=== PATIENT | male | born 1990 | race Caucasian/White ===

== ENCOUNTER 2019-02-07 23:51 | Emergency (ER) | payer MEDICAID, OTHER ==
[~2019-02-07] VITALS: Ht 170.2 cm; Wt 68.1 kg
[2019-02-07 23:55] VITALS: BP 121/82
[2019-02-08] MEDS ORDERED: LIDOCAINE-MPF 1%, 5ML ONE (00:14)
[2019-02-08] MEDS ORDERED: OXYcodone/APAP 5/325MG TABLET ONE (00:21)
[2019-02-08] MEDS ORDERED: IBUPROFEN 600 MG TABLET ONE (00:24)
[2019-02-08] MEDS ORDERED: LIDOCAINE-MPF 1%, 5ML INFIL ONE (00:30)
[2019-02-08] MEDS ORDERED: IBUPROFEN 200 MG TABLET PO ONE (00:30)
[2019-02-08] MEDS ORDERED: OXYcodone/APAP 5/325MG TABLET PO ONE (00:30)
--- NOTE | 2019-02-08 01:11 | NUR ---
PT REPORTS SIGNIFICANT IMPROVEMENT IN PAIN W/ I&D. DC EDUCATION PROVIDED, PT DEMONSTRATES UNDERSTANDING. PT AMBULATED STEADILY TO DC WITH RN
== END 2019-02-08 01:14 | disposition home or self-care (01) ==
LOC: ED 02-08 01:03
DX: L02.511 Cutaneous abscess of right hand (principal)
CPT/HCPCS: 10060; 26010; 99284

== ENCOUNTER 2021-01-11 23:20 | Emergency (ER) | payer MEDICAID ==
[~2021-01-11] VITALS: Ht 170.2 cm; Wt 66.2 kg
[2021-01-12] MEDS ORDERED: L.E.T SOLUTION TP ONE ×2 (00:13→00:30)
[2021-01-12 00:17] VITALS: BP 109/48
[2021-01-12] MEDS ORDERED: LIDOCAINE-MPF 1%, 5ML ONE (00:23)
[2021-01-12] MEDS ORDERED: LIDOCAINE-MPF 1%, 5ML INFIL ONE (00:30)
--- NOTE | 2021-01-12 01:18 | NUR ---
drsg applied to right ear, pt in nad
== END 2021-01-12 01:19 | disposition home or self-care (01) ==
LOC: ED 01-12 00:30
DX: L72.3 Sebaceous cyst (principal); F17.210 Nicotine dependence, cigarettes, uncomplicated; Z72.9 Problem related to lifestyle, unspecified
CPT/HCPCS: 69000; 99283

== ENCOUNTER 2021-02-03 21:09 | Emergency (ER) | payer MEDICAID ==
[~2021-02-03] VITALS: Ht 170.2 cm; Wt 64.3 kg
[2021-02-03 23:21] VITALS: BP 105/55
== END 2021-02-03 23:24 | disposition home or self-care (01) ==
LOC: ED 22:14
DX: S90.111A Contusion of right great toe without damage to nail, initial encounter (principal); F17.210 Nicotine dependence, cigarettes, uncomplicated; X58.XXXA Exposure to other specified factors, initial encounter; Y93.89 Activity, other specified; Y92.009 Unspecified place in unspecified non-institutional (private) residence as the place of occurrence of the external cause; Y99.8 Other external cause status
CPT/HCPCS: 99283

== ENCOUNTER 2021-02-22 02:32 | Emergency (ER) | payer MEDICAID ==
[~2021-02-22] VITALS: Ht 172.7 cm; Wt 75.0 kg
[2021-02-22 02:45] VITALS: BP 143/87
--- NOTE | 2021-02-22 03:05 | NUR ---
DENTAL BLOCK PERFORMED IN TRAIGE. BUPIVICANE 0.25@ 10ML BY MD WHITE. PT TOLERATED WELL.
== END 2021-02-22 03:07 | disposition home or self-care (01) ==
LOC: ED 02:42
DX: K02.9 Dental caries, unspecified (principal); K08.89 Other specified disorders of teeth and supporting structures; F17.200 Nicotine dependence, unspecified, uncomplicated
CPT/HCPCS: 64400; 99284